=== PATIENT | female | born 1995 | race Caucasian/White ===

== ENCOUNTER 2018-01-30 15:00 | Emergency (ER) | payer OTHER ==
[~2018-01-30] VITALS: Ht 162.6 cm; Wt 83.0 kg
[~2018-01-30 15:00] MED LIST: PRENATAL VITAM1 EACH PO
== END 2018-01-30 15:17 | disposition home or self-care (01) ==
LOC: ED 15:00
DX: R68.2 Dry mouth, unspecified (principal)

== ENCOUNTER 2021-02-20 22:23 | Inpatient (IN) | payer OTHER ==
--- NOTE | 2021-02-21 07:10 | NUR ---
RT COLLECTED COVID 19 SWAB WITH NO COMPLICATIONS. RT USED THE CEPHEID RAPID TEST THROUGH IN HOUSE LAB PER DR REQUEST AT THIS TIME.
--- NOTE | 2021-02-21 08:45 | PR ---
[facility] [address] [place], [place] [address] Signed Progress Notes IP Datetime Report Generated by CPN: 02/21/2021 07:27 PROGRESS NOTES: [id number] Impression: Normal Progression of Labor; Reassuring Heart Rate Procedures: Intrauterine Pressure Catheter; Sterile Vag Exam Plan: Augmentation Informed Consent Obtain: Vaginal Delivery VITAL SIGNS: [id number] Vital Signs: Reviewed; Within Normal Limits EXAM: [id number] Dilatation: 9.0 Effacement: 90 Station: 0 Contractions: Irregular MEMBRANES: [id number] Amniotic Fluid Color: Clear Comments: Pt seen and examined. Doing well. Comfortable w/ contractions w/ epidural. Contractions irregular and slow progress noted. IUPC placed after verbal consent obtained, and pt agrees to low dose pitocin. Anticipate soon FETUS A: [id number] FHR Baseline: 120 Variability: Moderate 6-25bpm Accelerations: 15X15 Decelerations: None FHR Category: Category I Presentation: Vertex Other Presentation: JULIAN Comments on Fetus A: No evidence of metabolic acidosis FETUS B: [id number] Signing Physician: Delaney Shaw DO Copies: ~ *Electronically Signed* 02/21/21726 DELANEY SHAW DO PATIENT NAME: THIERRY CARSON PROGRESS NOTE DATE OF : [birth year] PHYSICIAN: DELANEY SHAW DO RPT #: [id number] REPORT IS CONFIDENTIAL AND NOT TO BE RELEASED WITHOUT AUTHORIZATION
--- NOTE | 2021-02-22 09:36 | PR ---
[facility] [address] [facility] [place], [place] [address] Signed PP Progress Notes Datetime Report Generated by CPN: 02/22/2021 09:36 SUBJECTIVE: [id number] Pain: Within Normal Limits Nausea/Vomiting: Denies Vital Signs: [id number] Vital Signs: Reviewed; Within Normal Limits Abdomen/Uterus: Normal Lochia: Normal Extremities: Normal IMPRESSION/PLAN/PROCEDURES: [id number] Impression: Normal Progression Plan: Discharge Procedures: None Progress Notes: Doing well, without complaint, wants to go home. Signing Physician: Danny Hanson MD Copies: ~ *Electronically Signed* 02/22/21 0936 DANNY HANSON MD PATIENT NAME: THIERRY CARSON PROGRESS NOTE DATE OF : 93 PHYSICIAN: DANNY HANSON MD RPT #: [id number] REPORT IS CONFIDENTIAL AND NOT TO BE RELEASED WITHOUT AUTHORIZATION
== END 2021-02-22 12:30 | disposition home or self-care (01) | DRG 807 ==
LOC: FBCO 22:23 → FBC 22:37
PROVIDERS: ADMIT Obstetrics & Gynecology; ATTEND Obstetrics & Gynecology
PROC: 10E0XZZ Delivery of Products of Conception, External Approach (ICD-10-PCS; principal; 2021-02-21)
PROC: 10H07YZ Insertion of Other Device into Products of Conception, Via Natural or Artificial Opening (ICD-10-PCS; 2021-02-21)
PROC: 00HU33Z Insertion of Infusion Device into Spinal Canal, Percutaneous Approach (ICD-10-PCS; 2021-02-21)
PROC: 3E0R3BZ Introduction of Anesthetic Agent into Spinal Canal, Percutaneous Approach (ICD-10-PCS; 2021-02-21)
DX: O99.824 Streptococcus B carrier state complicating childbirth (principal); Z37.0 Single live birth; O76 Abnormality in fetal heart rate and rhythm complicating labor and delivery; Z20.822 Contact with and (suspected) exposure to COVID-19; O71.82 Other specified trauma to perineum and vulva; Z3A.38 38 weeks gestation of pregnancy
CPT/HCPCS: 01960; 85027; A9270; C9803; J2001; J2540; J2590; J7121; U0003

== ENCOUNTER 2022-12-29 04:52 | Inpatient (IN) | payer OTHER ==
[~2022-12-29] VITALS: Ht 163.8 cm; Wt 88.9 kg
--- NOTE | ~2022-12-29 | OR ---
[facility] [address] [place] [id number] Draft DATE OF OPERATION: 12/29/2022 SURGEON: Delaney Shaw DO PREOPERATIVE DIAGNOSES: 1. Intrauterine at 38 weeks gestation. 2. Breech presentation. 3. Active labor. 4. Methamphetamine positive. 5. Limited care. POSTOPERATIVE DIAGNOSES: 1. Intrauterine at 38 weeks gestation. 2. Breech presentation. 3. Active labor. 4. Methamphetamine positive. 5. Limited care. PROCEDURE PERFORMED: Primary low transverse delivery. AUTO STRIPER: Noemy Sales DO. ANESTHESIA: Spinal. ESTIMATED BLOOD LOSS: 1000 mL. DRAINS: Tenorio to gravity. COMPLICATIONS: None. FINDINGS: Delivery of viable male , 7 pounds 1 ounce with Apgars of 9 and 9 born in the dennis breech presentation with no nuchal cord. Clear amniotic fluid. Normal uterus, tubes, and ovaries bilaterally. PATIENT NAME: THIERRY ROA OPERATIVE REPORT DATE OF : [birth year] REPORT #: [id number] PHYSICIAN: DEALNEY SHAW (CELIA) PCP: DOREEN WEN PAC REPORT IS CONFIDENTIAL AND NOT TO BE RELEASED WITHOUT AUTHORIZATION [facility] [address] [place] [address] Draft INDICATIONS: Ms. Roa is a pleasant 27-year-old female at 38 weeks gestation, who presented to Labor and Delivery initially for scheduled external cephalic version. She complained of contractions increasing in frequency and intensity and was found to have advanced cervical dilation of 5 and 80. We reviewed the risks, benefits and alternatives and the patient strongly declines external cephalic version and would like to proceed with primary low transverse delivery. Orders and consents were signed and the patient's questions were answered. TECHNIQUE: The patient was taken to the operating room where a time-out was performed to confirm correct patient and correct procedure. Spinal anesthesia was adequately established and the patient was prepped and draped in the supine position with a bump on the right hip. ICPs were on and running and Tenorio catheter was inserted. Ancef 2 g preoperatively given and no heparin was indicated. A Pfannenstiel skin incision was made approximately 2 to 3 cm above the pubic symphysis and carried down to the fascia. Fascia was nicked in the midline and fascial incision was extended bilaterally using curved Rios scissors. Fascia was grasped with Amara's, elevated and the underlying rectus muscle dissected off sharply and bluntly. The rectus was divided bluntly in the midline and the peritoneum was entered bluntly. Peritoneal incision was extended bilaterally using blunt dissection and Davey self retractor was placed. The lower uterine segment was identified and hysterotomy was performed using a surgical scalpel. Amnion was ruptured and hysterotomy was extended bilaterally using blunt dissection. The buttocks were delivered with the assistance of fundal pressure with the surgeon's hands guiding the ileum through the hysterotomy. The baby was then delivered to the axilla of the anterior shoulder and the baby rotated 180 degrees. The now anterior shoulder was identified and the arm swept medially. The was then rotated to occiput anterior and the head was flexed and easily delivered with the assistance of fundal pressure. The was vigorous and cried at delivery. Cord was doubly clamped and cut and handed to waiting pediatric team for further care. Brisk vascular bleeding was noted, especially from the left uterine artery. This was quickly clamped and then the placenta was manually expressed, intact with a centrally inserted three-vessel cord. Uterine tone was excellent and bleeding quickly resolved and estimated blood loss was approximately 1000 mL. The uterine cavity was cleared of any remaining products of conception or clot. Hysterotomy was closed in two layers with 0 Monocryl, the 1st being a running locked layer and the 2nd being a running imbricating layer in the vertical manner with excellent hemostasis and imbrication appreciated. The pelvis was irrigated and all clot was removed. No additional bleeding was noted after a [id number] suture was applied to the left edge of the hysterotomy. Normal uterus, tubes, and ovaries were appreciated. After ensuring excellent hemostasis, Matthew was applied to the hysterotomy. The peritoneum was then reapproximated using 2-0 Vicryl in a running PATIENT NAME: THIERRY ROA OPERATIVE REPORT DATE OF : [birth year] REPORT #: [id number] PHYSICIAN: DELANEY SHAW DO (JD) PCP: DOREEN WEN PAC REPORT IS CONFIDENTIAL AND NOT TO BE RELEASED WITHOUT AUTHORIZATION [place] [id number] [place], [place] [address] Draft nonlocked manner. The rectus was made hemostatic with judicious use of Bovie electrocautery and then it was reapproximated loosely with three interrupted sutures of 0 Vicryl. The rectus was again irrigated and found to be hemostatic. Fascia was reapproximated using 0 Vicryl in a running nonlocked manner. Subcu was made hemostatic with judicious use of Bovie electrocautery after irrigation. Subcu was then reapproximated using 3-0 Vicryl in a running nonlocked manner. Skin was reapproximated using surgical devan. The uterus was Crede'd for scant amount of blood. The patient remained in the PACU for postoperative TAP blocks. Sponge, needle, and instrument counts were correct x2 at the end of the procedure. Dr. Sales was present and participated in all portions of the procedure. DO NICKO Riojas/MERCEDES /[id number] Copies: ~ PATIENT NAME: THIERRY ROA OPERATIVE REPORT DATE OF : [birth year] REPORT #: [id number] PHYSICIAN: DELANEY SHAW DO (JD) PCP: DOREEN WEN PAC REPORT IS CONFIDENTIAL AND NOT TO BE RELEASED WITHOUT AUTHORIZATION
[2022-12-29 05:38] VITALS: BP 122/64
--- NOTE | 2022-12-29 08:52 | NUR ---
12/29/22 0852 PaulineDorita 0840-PATIENT ARRIVED BACK TO ROOM 102 FOR RECOVERY PATIENT AWAKE DENIES PAIN OR NAUSEA. HOB SLIGHTLY ELEVATED. RA 98% RR EVEN. ILEANA PAD TO VAGINA LIGHT RUBRA DRAINAGE. FUNDUS 2 BELOW BECAME FIRM. IV TO RIGHT ARM CDI INFUSING WITH LR 20 PITOCIN. SPINAL LEVEL AT T11. VILLARREAL CATHETER DRAINING CLEAR YELLOW URINE. SR. 0851-PATIENT AWAKE MOM AT BEDSIDE PATIENT HOLDING BABY. RA 97% RR EVEN DENIES PAIN OR NAUSEA.
[2022-12-29 09:14] VITALS: BP 115/66
--- NOTE | 2022-12-30 07:38 | PR ---
[facility] [address] [facility] [place], [place] [address] Signed PP Progress Notes Datetime Report Generated by CPN: 12/30/2022 07:38 SUBJECTIVE: [id number] Pain: Within Normal Limits Nausea/Vomiting: Denies Flatus: Yes Bowel Movement: No Vital Signs: [id number] Vital Signs: Reviewed; Within Normal Limits EXAM: Ongoing Cardiovascular: Normal Respiratory: Normal Abdomen/Uterus: Normal Lochia: Normal Vulva/Perineum: Not Done Breasts: Not Done CVA Tenderness: Normal Extremities: Normal Incision: Normal Progress: Not Applicable Exam Comments: Fundus firm U-2 nontender. Incision healing well. Bandaging removed IMPRESSION/PLAN/PROCEDURES: [id number] Impression: Normal Progression Plan: Continue Present Management Progress Notes: Pt seen and examined. Doing well. Ambulating and tolerating full diet. Pain and lochia minimal. Bottlefeeding. Tenorio still in place. No questions or concerns. Signing Physician: Delaney Shaw DO Copies: ~ *Electronically Signed* 12/30/22 0738 DELANEY SHAW (CELIA) DO PATIENT NAME: THIERRY CARSON OLGA LIDIA PROGRESS NOTE DATE OF : [birth year] PHYSICIAN: DELANEY SHAW) DO RPT #: [id number] REPORT IS CONFIDENTIAL AND NOT TO BE RELEASED WITHOUT AUTHORIZATION
--- NOTE | 2022-12-31 13:46 | PR ---
[facility] [address] [place], [place] [address] Signed PP Progress Notes Datetime Report Generated by ELEANN: 12/31/2022 13:45 SUBJECTIVE: [id number] Pain: Within Normal Limits Nausea/Vomiting: Denies Flatus: Yes Bowel Movement: No Vital Signs: [id number] Vital Signs: Reviewed; Within Normal Limits EXAM: Ongoing Cardiovascular: Normal Respiratory: Normal Abdomen/Uterus: Normal Lochia: Normal Vulva/Perineum: Not Done Breasts: Not Done CVA Tenderness: Normal Extremities: Normal Incision: Normal Progress: Not Applicable Exam Comments: Fundus firm U-2 nontender. Incision healing well. IMPRESSION/PLAN/PROCEDURES: [id number] Impression: Normal Progression Plan: Discharge Progress Notes: Pt seen and examined. Doing well. Ambulating, voiding, and tolerating full diet. Pain and lochia minimal. Bottlefeeding. No fevers/chills/concerns. Desires d/c home although baby is not ready for discharge. Reviewed d/c instructions in detail. All questions answered to the best of my ability and to pt's apparent satisfaction. Pt w/ hx of depression and did well on Zoloft in the past. Would like to restart Zoloft and I agree to start at 50mg po daily. Will also discharge home w/ Motrin 800mg TID prn pain, [place]uddie 5/325 Q6 hr prn pain #15, and ferrous sulfate 325 BID x 30 days. F/U for staple removal early next week. Signing Physician: Delaney Shaw, Copies: ~ *Electronically Signed* 12/31/22 4200 DELANEY SHAW (CELIA) DO PATIENT NAME: THIERRY CARSON ANAROSA PROGRESS NOTE DATE OF : [birth year] PHYSICIAN: DELANEY SHAW DO (JD) RPT #: [id number] REPORT IS CONFIDENTIAL AND NOT TO BE RELEASED WITHOUT AUTHORIZATION
== END 2022-12-31 16:50 | disposition home or self-care (01) | DRG 787 ==
LOC: FBCO 04:52 → FBC 07:20 → DS 07:30 → FBCO 07:30 → FBC 12-31 16:50
PROVIDERS: ADMIT Obstetrics & Gynecology; ATTEND Obstetrics & Gynecology
PROC: 10D00Z1 Extraction of Products of Conception, Low, Open Approach (ICD-10-PCS; principal; 2022-12-29 07:30)
DX: O32.1XX0 Maternal care for breech presentation, not applicable or unspecified (principal); O99.324 Drug use complicating childbirth; O99.334 Smoking (tobacco) complicating childbirth; F15.90 Other stimulant use, unspecified, uncomplicated; F41.8 Other specified anxiety disorders; F17.210 Nicotine dependence, cigarettes, uncomplicated; Z37.0 Single live birth; Z90.49 Acquired absence of other specified parts of digestive tract; Z3A.38 38 weeks gestation of pregnancy; Z67.10 Type A blood, Rh positive; Z98.818 Other dental procedure status; Z88.8 Allergy status to other drugs, medicaments and biological substances
CPT/HCPCS: 01961; 36415; 76942; 85027; 85384; 85610; 85730; 86850; 86900; 86901; A9270; J0690; J1100; J1650; J1885; J2405; J2590; J2795; J3010; J7121

== ENCOUNTER 2023-12-06 19:48 | Emergency (ER) | payer OTHER ==
[~2023-12-06] VITALS: Ht 152.4 cm; Wt 82.1 kg
[2023-12-06] MEDS ORDERED: hydrOXYzine pamoate 25 MG CAP PO ONE (20:45)
[2023-12-06] MEDS ORDERED: predniSONE 20 MG TAB PO ONE (20:45)
[2023-12-06] MEDS ORDERED: VISTARIL25 MG PO (21:00)
[2023-12-06 21:06] VITALS: BP 168/89
== END 2023-12-06 21:06 | disposition home or self-care (01) ==
LOC: ED 19:48
DX: R21 Rash and other nonspecific skin eruption (principal); F17.200 Nicotine dependence, unspecified, uncomplicated
CPT/HCPCS: J7512; Q0177